=== PATIENT | male | born 1975 | race African-American/Black ===

== ENCOUNTER 2017-02-24 13:50 | Emergency (ER) | payer MEDICARE, OTHER ==
[~2017-02-24] VITALS: Ht 180.3 cm; Wt 68.0 kg
--- NOTE | ~2017-02-24 | CR63 ---
[facility] A Service of [facility] RADIOLOGY TEXT RESULTS PATIENT: GRISELDA LAGUERRE LOCATION: [place] : 77 UNIT #: [id number] AGE: [address]: Jolie Lopez APRN SEX: M ORDER DR: [id number] [facility] [address] [place], [place] [address] [id number] E MR#: [id number] Acc #: [id number] NAME: GRISELDA LAGUERRE. : 1975 SEX: M STUDY DATE/TIME: 02/24/2017 16:05 UNIT: [facility] ROOM: STUDY DESCRIPTION: CR Chest 2 View Attending Physician: Jolie Lopez A.P.R.N. Ordering Physician: Ed Carlos Quispe M.D. Primary Care Physician: Mane De Guzman M.D. MEDICAL IMAGING REPORT This report is preliminary unless electronic signature is present EXAMINATION PA and lateral chest. DATE 02/24/2017 HISTORY 41-year-old male with cough and congestion since yesterday. History of greater than 20 years smoking. COMPARISON PA and lateral chest, 06/17/2016. FINDINGS PA and lateral examination of the chest upright shows a good expansion of the parenchyma with a normal distribution of the pulmonary vascularity. There is no indication of congestion, effusion, infiltrate, tumor, or nodular density. The pleural reflections and diaphragmatic contours are normal. The cardiac silhouette and mediastinal anatomy is within normal limits. IMPRESSION Normal chest. Dictated by... Emily Mo M.D. THIS IS AN ELECTRONICALLY VERIFIED REPORT Emily Mo M.D. at 02/27/2017 8:[address] [facility]/wilner TD: 02/25/2017 08:39 JOB #: [id number] [facility] A Service [facility] RADIOLOGY TEXT RESULTS PATIENT: GRISELDA LAGUERRE LOCATION: [place] : 77 UNIT #: [id number] AGE: [address]: Jolie Lopez APRN SEX: M ORDER DR: MEDICAL IMAGING REPORT Page 1 of 1 COPY
[~2017-02-24 13:50] MED LIST: ALBUTEROL17 GM INH; ANTIVERT PO; BENADRYL25 M1 PO; BENZONATATE PO; IMODIUM2 MG PO; LOMOTIL TABLET1 TAB PO; MEDROL DOSEPAK4 MG PO; NAPROSYN250 M1 PO; NO MEDICATIONS; PHENERGAN25 M1 PO; PREDNISONE PO; SUMATRIPTAN SU100 MG PO; VICODIN 5/500 T1 TAB PO; VOLTAREN50 MG PO; ZITHROMAX PO
== END 2017-02-24 16:51 | disposition home or self-care (01) ==
LOC: CED 13:50 → CFTX 13:50
DX: J20.9 Acute bronchitis, unspecified (principal); G43.909 Migraine, unspecified, not intractable, without status migrainosus; F17.200 Nicotine dependence, unspecified, uncomplicated; Z91.018 Allergy to other foods
CPT/HCPCS: 71020; 87651; 99283